=== PATIENT | male | born 1960 | race Caucasian/White ===

== ENCOUNTER 2016-11-26 06:02 | Inpatient (IN) ==
[2016-11-21 14:34] LABS: Basophils # (Auto) 0.1 K/mcL (0.0-0.3); Basophils % (Auto) 0.5 % (0.0-2.0); Eosinophils # (Auto) 0.3 K/mcL (0.0-0.7); Eosinophils % (Auto) 2.2 % (0.0-7.0); Granulocytes % (Auto) 73.9 % (38.0-78.0); Lymphocytes # (Auto) 2.1 K/mcL (1.5-4.8); Lymphocytes % (Auto) 18.1 % (15.5-49.0); Mean Cell Volume 88.6 fL (80.0-100.0); Mean Corpuscular HGB Conc 34.2 g/dL (31.0-36.0); Mean Corpuscular Hemoglobin 30.3 pg (26.0-34.0); Monocytes # (Auto) 0.6 K/mcL (0.1-0.9); Monocytes % (Auto) 5.3 % (1.0-12.0); Platelet Count 381 K/mcL (140-440); RBC 5.47 M/mcL (4.50-5.90); Red Cell Distribution Width 12.2 % (11.5-14.5)
[2016-11-21 14:38] LABS: Blood Urea Nitrogen 15 mg/dl (6-20)
[2016-11-21 15:02] LABS: Appearance,Urine HAZY; Bilirubin,Urine NEG (NEG); Color,Urine YELLOW; Glucose,Urine (UA) NEGATIVE (NEG); Leukocyte Esterase,Urine NEG /uL (NEG); Nitrate,Urine NEG (NEG); Protein,Urine NEG (NEG); Specific Gravity,Urine 1.023 (1.000-1.035); Urine Blood NEG mg/dL (<0.03); Urobilinogen,Urine NEG (NEG)
[~2016-11-26 06:02] MED LIST: ceFAZolin 1 GM VIAL IV SCH
[2016-11-26] MEDS ORDERED: diphenhydrAMINE 50 MG/ML VIAL IV ONE (09:50)
[2016-11-26] MEDS ORDERED: MIDAZOLAM 5 MG/5 ML VIAL IV ONE (09:50)
[2016-11-26] MEDS ORDERED: LIDOCAINE HCL/PF 100 MG/5 ML SYRINGE IV ONE (09:50)
[2016-11-26] MEDS ORDERED: FAMOTIDINE/PF 20 MG/2 ML VIAL IV ONE (09:50)
[2016-11-26] MEDS ORDERED: fentaNYL 250 MCG/5 ML VIAL IV ONE (09:50)
[2016-11-26] MEDS ORDERED: DEXAMETHASONE 10 MG/ML VIAL IV ONE (09:50)
[2016-11-26] MEDS ORDERED: PROPOFOL 200 MG/20 ML VIAL IV ONE (09:50)
[2016-11-26] MEDS ORDERED: FLUMAZENIL 0.1 MG/ML ML IV PRN (11:49)
[2016-11-26] MEDS ORDERED: LACTATED RINGERS 250 ML IV PRN (11:49)
[2016-11-26] MEDS ORDERED: HYDROmorphone 2 MG/ML SYRINGE IV PRN (11:49)
[2016-11-26] MEDS ORDERED: diphenhydrAMINE 50 MG/ML VIAL IV PRN (11:49)
[2016-11-26] MEDS ORDERED: NALOXONE HCL 0.4 MG/ML VIAL IV PRN (11:49)
[2016-11-26] MEDS ORDERED: METHOCARBAMOL 1,000 MG/10 ML VIAL IV PRN (11:49)
[2016-11-26] MEDS ORDERED: IPRATROPIUM/ALBUTEROL 3 ML AMPUL.NEB NEB PRN (11:49)
[2016-11-26] MEDS ORDERED: BENZOCAINE/MENTHOL 1 LOZENGE PO PRN ×2 (11:49→12:24)
[2016-11-26] MEDS ORDERED: MEPERIDINE 25 MG/ML SYRINGE IV PRN (11:49)
[2016-11-26] MEDS ORDERED: ONDANSETRON 4 MG/2 ML VIAL IV PRN ×2 (11:49→12:24)
[2016-11-26] MEDS ORDERED: LACTATED RINGERS 1,000 ML IV SCH (12:00)
[2016-11-26] MEDS ORDERED: GENTAMICIN SULFATE 800 MG/20 ML VIAL IR ONE (12:20)
[2016-11-26] MEDS ORDERED: BUPIVACAINE 0.5% 50 ML VIAL IJ ONE (12:23)
[2016-11-26] MEDS ORDERED: TRANEXAMIC ACID 1,000 MG/10 ML VIAL IV ONE (12:24)
[2016-11-26] MEDS ORDERED: TEMAZEPAM 15 MG CAPSULE PO PRN (12:24)
[2016-11-26] MEDS ORDERED: HYDROcodone/APAP 10/325MG TABLET PO PRN (12:24)
[2016-11-26] MEDS ORDERED: 0.9 % SODIUM CHLORIDE 1,000 ML IV SCH (12:30)
--- NOTE | 2016-11-26 12:31 | Brief Operative Note ---
Date of procedure: 11/26/16 Pre-op diagnosis: DJD right ankle Post-op diagnosis: same Procedure: R tar Grafts/Implants: Yes (dima real/niranjan) Anesthesia: BRAXTON Surgeon: Alexx Chatterjee [employer] Specialist: Rome Silva Estimated blood loss (cc): 100 Tourniquet Time (Minutes): 101 Specimens Removed/Pathology: none sent Condition: stable Disposition: PACU
[2016-11-26] MEDS: fentaNYL 100 MCG/2 ML VIAL IV PRN ×2 (12:55→13:05)
--- NOTE | 2016-11-26 13:08 | XRay Report ---
HISTORY: Reason for Exam:post op FINDINGS: Patient has a well-positioned total ankle prosthesis. Overlying plaster cast obscures bone detail. On the oblique view a radiolucent line is seen along the medial side of the tibia, contiguous with the prosthesis. This may be a fracture or a postsurgical defect.. There are screw holes above the prosthesis in the distal tibia. IMPRESSION: Well-positioned ankle prosthesis and possible fracture of the distal tibia Interpreted and Authenticated by: Landen Garvey 11/26/16
[2016-11-26] MEDS ORDERED: CLINDAMYCIN 600 MG in DEXTROSE 5% IN WATER 50 ML IV SCH (14:00)
[2016-11-26] MEDS ORDERED: 0.9 % SODIUM CHLORIDE 10 ML SYRINGE IV SCH (14:00)
[2016-11-26] MEDS ORDERED: KETOROLAC 15 MG/ML VIAL IV SCH (18:00)
[2016-11-26] MEDS ORDERED: ASPIRIN 325 MG ENTERIC COATED TABLET PO SCH (21:00)
== END 2016-11-26 16:20 | disposition home or self-care (01) | DRG 470 ==
LOC: MEDSUR 06:02
PROVIDERS: ADMIT Orthopaedic Surgery Foot and Ankle Surgery; ATTEND Orthopaedic Surgery Foot and Ankle Surgery